=== PATIENT | male | born 1950 | race Caucasian/White ===

== ENCOUNTER → 2018-09-30 10:00 | Outpatient (CLI) | payer OTHER, SELFPAY ==
--- NOTE | 2018-09-30 10:05 | DI.CT.S_ITS ---
PROCEDURE: CT LUNG LOW DOSE SCREENING INDICATIONS: Encounter for screening, unspecified TECHNIQUE: Noncontrast 2.0-2.5 mm thick sections acquired from the pulmonary apices to the posterior costophrenic angles. 7 mm thick coronal and sagittal MIP reformats were then acquired. A low radiation dose technique was utilized. COMPARISON: None. FINDINGS: Image quality: Diagnostic, given the low radiation dose technique. Lungs and pleura: Within the lung parenchyma bilaterally there are 14 separate small pulmonary nodules are generally 2-3 mm in diameter, and some of which are calcified. This is consistent with old granulomatous disease and no malignant appearing lung mass is found. The largest nodule is located at the lateral left upper lobe measuring 7 mm and is densely calcified. There is a slight degree of posterior right lower lobe alveolar scarring centered on series 3 image 51. Mediastinum: Heart size is normal. No pericardial effusion. No mediastinal adenopathy by size criteria. Thoracic aorta and central pulmonary arteries are normal in size. Esophagus is normal in caliber. No hiatal hernia. Bones and chest wall: No suspicious bony lesions. No vertebral body compression fractures. No axillary or supraclavicular adenopathy by size criteria. Thyroid gland appears normal. Abdomen: Visualized upper abdomen solid organs and bowel loops appear normal in the absence of contrast. IMPRESSION: Old granulomatous disease, producing calcified and small noncalcified nodules within the lung parenchyma. No malignant appearing mass is seen. Minimal alveolar scarring posterior right lower lung seen on one image. LUNG-RADS 2; one year followup CT without contrast using low dose CT scanning technique is recommended. Dictated by: Jonathan Altman M.D. on 09/30/2018 at 12:40 Approved by: Jonathan Altman M.D. on 09/30/2018 at 13:08
== END ==
PROVIDERS: PCP Nurse Practitioner Adult Health; Visit Provider Nurse Practitioner Adult Health
DX: Z12.2 Encounter for screening for malignant neoplasm of respiratory organs (principal); Z13.83 Encounter for screening for respiratory disorder NEC; R91.8 Other nonspecific abnormal finding of lung field
CPT/HCPCS: 71250

== ENCOUNTER → 2020-01-20 15:27 | Outpatient (CLI) | payer MEDICARE, SELFPAY ==
--- NOTE | 2020-01-20 | DI.CT.S_ITS ---
PROCEDURE: CT CHEST WO CON INDICATIONS: Solitary pulmonary nodule TECHNIQUE: Noncontrast 2.0-2.5 mm thick sections acquired from the pulmonary apices to the posterior costophrenic angles. 7 mm thick axial MIP and 5 mm coronal and sagittal reformats were then acquired. A low radiation dose technique was utilized. COMPARISON: [facility], CT, CT LUNG LOW DOSE SCREENING, 09/30/2018, 9:58. FINDINGS: Image quality: Diagnostic, given the low radiation dose technique. Lungs and pleura: Innumerable bilateral sub-5 mm pulmonary nodules and calcified granulomas, which appear grossly unchanged is 09/30/18. Mediastinum: Heart size is normal. Coronary artery calcifications are present. No pericardial effusion. No mediastinal adenopathy by size criteria. Thoracic aorta and central pulmonary arteries are normal in size. Esophagus is normal in caliber. No hiatal hernia. Bones and chest wall: No suspicious bony lesions. Mild T5 compression fracture, technically indeterminate although new since 09/30/18 No axillary or supraclavicular adenopathy by size criteria. Thyroid gland negative. Large simple appearing left renal cyst as before. Hepatic cysts are also noted, unchanged low-attenuation presumed right adrenal adenoma unchanged. IMPRESSION: Redemonstration of multiple presumed calcified and noncalcified granulomatous sequela. No interval change. Age-indeterminate mild T5 compression fracture, new since the prior study. Please correlate with point tenderness. Continued annual lung screening could be performed as warranted by criteria Additional chronic and incidental findings as above. Fleischner Society criteria for SOLID lung nodule followup. Nodule size (mm)Low-risk patientHigh-risk patient<6 (single or multiple)No routine followup.Optional CT at 12 months. 6-8 (single or multiple)CT at 6-12 months, then optional CT at 18-24 mo.CT at 6-12 months, then CT at 18-24 months. >8 (single)CT at 3 months, PET-CT, or biopsy. Same as for low-risk pts. >8 (multiple)CT at 3-6 months, then optional CT at 18-24 mo.CT at 3-6 months, then CT at 18-24 months. Fleischner Society criteria for SUB-SOLID lung nodule followup. Solitary pure ground-glass nodules<6 mm (ground glass or part solid)No followup needed. 6 mm or larger (ground glass)CT at 6-12 months to confirm persistence, then CT every 2 years until 5 years.6 mm or larger (part solid)CT at 3-6 months to confirm persistence, then annual CT until 5 years if unchanged and solid component remains <6 mm. Multiple sub-solid nodules<6 mmCT at 3-6 months, then CT consider at 2 & 4 years for high risk patients. [address] at 3-6 months. Subsequent management based on most suspicious lesions. Recommendations do not apply to lung cancer screening, patients with immunosuppression, or patients with known primary cancer. Dictated by: Dayron Kelly M.D. on 01/20/2020 at 17:58 Approved by: Dayron Kelly M.D. on 01/20/2020 at 18:03
== END ==
PROVIDERS: PCP Nurse Practitioner Adult Health; Referring Provider Internal Medicine; Visit Provider Internal Medicine
DX: R91.8 Other nonspecific abnormal finding of lung field (principal); N28.1 Cyst of kidney, acquired; K76.89 Other specified diseases of liver; M48.54XA Collapsed vertebra, not elsewhere classified, thoracic region, initial encounter for fracture; I25.10 Atherosclerotic heart disease of native coronary artery without angina pectoris
CPT/HCPCS: 71250

== ENCOUNTER → 2021-02-04 09:56 | Outpatient (CLI) | payer OTHER, SELFPAY ==
[2021-02-04 11:08] LABS: Alanine Aminotransferase 32 IU/L (<50); Albumin 4.4 g/dL (3.5-5.0); Albumin Globulin Ratio 1.6 (1.0-2.8); Alkaline Phosphatase 67 U/L (38-126); Aspartate Aminotransferase 35 IU/L (17-59); BUN Creatinine Ratio 23.8 (6-22); Bilirubin Total 1.2 mg/dL (0.2-1.3); Blood Urea Nitrogen 15 mg/dL (9-20); Calcium 9.2 mg/dL (8.4-10.2); Carbon Dioxide 24 mmol/L (22-32); Chloride 104 mmol/L (98-107); Cholesterol 153 mg/dL (140-199); Estimated Glomerular Filt Rate > 60.0 mL/min (>60); Globulin 2.7 g/dL (1.7-4.1); Glucose 108 mg/dL (80-110); HDL Cholesterol 55 mg/dL (40-60); HEMOLYSIS < 15 (0-50); LDL Cholesterol Calculated 88 mg/dL (<100); Sodium 137 mmol/L (137-145); Total Protein 7.1 g/dL (6.3-8.2); Triglycerides 52 mg/dL (35-150)
[2021-02-05 07:09] LABS: PSA Free % 5.1 % (.); PSA, Total 9.1 ng/mL (0.0-4.0)
== END ==
PROVIDERS: PCP Nurse Practitioner Adult Health; Referring Provider Internal Medicine; Visit Provider Internal Medicine
DX: I10 Essential (primary) hypertension (principal); Z12.5 Encounter for screening for malignant neoplasm of prostate
CPT/HCPCS: 36415; 80053; 80061; 84153; 84154

== ENCOUNTER → 2021-03-01 10:06 | Outpatient (CLI) | payer OTHER, SELFPAY ==
[2021-03-01 12:16] LABS: Prostate Specific Antigen 8.82 ng/mL (0.10-4.00)
[2021-03-02 08:08] LABS: PSA Free % 4.6 % (.); PSA, Total 8.5 ng/mL (0.0-4.0)
== END ==
PROVIDERS: PCP Nurse Practitioner Adult Health; Referring Provider Physician Assistant Medical; Visit Provider Physician Assistant Medical
DX: R97.20 Elevated prostate specific antigen [PSA] (principal)
CPT/HCPCS: 36415; 84153; 84154

== ENCOUNTER → 2022-05-05 10:54 | Outpatient (CLI) | payer OTHER, SELFPAY ==
--- NOTE | 2022-05-05 | DI.RAD.S_ITS ---
PROCEDURE: XR KNEE RT 3V INDICATIONS: Pain in right knee TECHNIQUE: 3 views of the knee were acquired. COMPARISON: None. FINDINGS: No suspicious lytic or blastic osseous lesion. No fracture or dislocation. Small to moderate-sized knee joint effusion. Tricompartmental mild joint space narrowing. IMPRESSION: Small to moderate knee joint effusion. Mild degenerative changes. No acute finding. Dictated by: Baldev Harmon M.D. on 05/05/2022 at 12:25 Approved by: Baldev Harmon M.D. on 05/05/2022 at 12:26
== END ==
PROVIDERS: PCP Internal Medicine; Referring Provider Internal Medicine; Visit Provider Internal Medicine
DX: M25.561 Pain in right knee (principal); M25.461 Effusion, right knee
CPT/HCPCS: 73562

== ENCOUNTER 2022-07-04 10:25 | Emergency (ER) | payer OTHER, SELFPAY ==
[2022-07-04] VITALS (10 sets, daily range): BP systolic 117–134; BP diastolic 75–96; PULSE 67–98; RESP 13–21; TEMP 36.6; O2SAT 95–98; BMI 25.0
--- NOTE | 2022-07-04 10:32 | DI.RAD.S_ITS ---
PROCEDURE: XR CHEST 1V INDICATIONS: chest pain TECHNIQUE: One view of the chest was acquired. COMPARISON: None. FINDINGS: Surgical changes and devices: None. Lungs and pleura: A calcified granuloma is seen in lateral aspect of left upper lung field. No focal infiltrate. No pleural effusions or pneumothorax. Mediastinum: Mediastinal contours appear normal. Heart size is normal. Bones and chest wall: No suspicious bony lesions. Overlying soft tissues appear unremarkable. IMPRESSION: No acute cardiopulmonary pathology. Dictated by: Manuel Pandey M.D. on 07/04/2022 at 11:24 Approved by: Manuel Pandey M.D. on 07/04/2022 at 11:28
[2022-07-04 10:42] LABS: Add Manual Diff / Slide Review NO; Basophils Absolute Auto 0 /uL (0-100); Basophils Percent Auto 0.6 % (0-2); Eosinophils Absolute Auto 200 /uL (0-450); Eosinophils Percent Auto 2.6 % (2-4); Hematocrit 46.6 % (41-53); Hemoglobin 16.4 g/dL (13.5-17.5); Lymphocytes Absolute Auto 1600 /uL (1100-4500); Mean Corpuscular HGB Conc 35.2 % (30-36); Mean Corpuscular Hemoglobin 33.5 PG (26-34); Mean Corpuscular Volume 95.1 fL (80-100); Monocytes Absolute Auto 700 /uL (0-900); Monocytes Percent Auto 11.3 % (3-14); Neutrophils Absolute Auto 3600 /uL (1500-7000); Neutrophils Percent Auto 59.5 % (50-75); Platelet Count 141 X10^3/uL (150-400); Red Cell Distribution Width 12.7 % (11.6-14.8)
[2022-07-04 10:53] LABS: Prothrombin Time 11.9 SECONDS (10.1-12.7)
[2022-07-04 10:56] LABS: PTT Partial Thromboplastin Tim 31 SECONDS (26-36)
[2022-07-04 10:59] LABS: Alanine Aminotransferase 23 IU/L (<50); Albumin 4.2 g/dL (3.5-5.0); Albumin Globulin Ratio 1.4 (1.0-2.8); Alkaline Phosphatase 65 U/L (38-126); Aspartate Aminotransferase 26 IU/L (17-59); BUN Creatinine Ratio 19.2 (6-22); Bilirubin Total 2.1 mg/dL (0.2-1.3); Blood Urea Nitrogen 15 mg/dL (9-20); Carbon Dioxide 28 mmol/L (22-32); Chloride 105 mmol/L (98-107); Creatine Kinase 71 U/L (55-170); Estimated Glomerular Filt Rate > 60 mL/min (>60); Globulin 3.1 g/dL (1.7-4.1); Glucose 105 mg/dL (80-110); HEMOLYSIS < 15 (0-50); Lipase 38 U/L (23-300); Magnesium 1.9 mg/dL (1.6-2.3); Potassium 4.2 mmol/L (3.4-5.1); Sodium 137 mmol/L (137-145); Total Protein 7.3 g/dL (6.3-8.2)
[2022-07-04 11:10] LABS: Troponin I < 0.012 ng/mL (0.01-0.034)
--- NOTE | 2022-07-04 12:14 | ED_ITS ---
HPI - Arrhythmia/Palpitations General Chief Complaint: Arrhythmia/Palpitations Stated Complaint: AFIB- sent by [facility] Time Seen by Provider: 07/04/22 12:06 Source: patient Mode of arrival: Ambulatory History of Present Illness HPI narrative: Patient is a 71-year-old male history of stroke without residual deficits he has a known PFO paroxysmal atrial fibrillation presenting today it atrial fibrillation. Says he felt fine yesterday. He says he woke up this morning around 1:00 a.m. and felt irregular heartbeat he was able to go back to sleep. He has absolutely no symptoms now although he is in AFib with heart rate in the 80s. He was seen initially at the walk-in clinic to be checked out. He sometimes feels that just being irregular when he is moving around but overall is fairly asymptomatic. He is not 100% sure how he was yesterday but he thinks he was in his normal sinus rhythm. He states that his regular heart rate is 50. Related Data Previous Rx's Medication Instructions Recorded apixaban 5 mg tablet (Eliquis) 5 mg PO BID #60 tabs 07/04/22 metoprolol succinate 25 mg 12.5 mg PO DAILY #30 tabs 07/04/22 tablet,extended release 24 hr Allergies Allergy/AdvReac Type Severity Reaction Status Date / Time No Known Drug Allergies Allergy Verified 07/04/22 10:33 Review of Systems Review of Systems Narrative: GENERAL: Denies chills, fatigue, malaise, fever, sweats, travel HEENT: Denies sinus pain, ear pain, sore throat, difficulty swallowing, neck pain RESPIRATORY: Denies dyspnea, cough, wheezing, hemoptysis, sputum. CARDIOVASCULAR: See HPI GASTROINTESTINAL: Denies nausea, vomiting, abdominal pain, diarrhea, constip ation, melena. : Denies dysuria, frequency, incontinence, hematuria, urinary retention, flank pain. MUSCULOSKELETAL: Denies weakness, joint pain, or bony pain SKIN: No rash, no erythema, no pruritus NEUROLOGIC: Denies weakness, dizziness, headache, numbness, change in speech, confusion PSYCHIATRIC: No concerning psychosocial issues. 12 point review of systems is negative except for those stated above and HPI Patient History Social History Smoking Status: Never smoker Smoking Status: Never smoker alcohol intake frequency: holidays/special occasions only Substance Use Type: does not use Exam Initial Vital Signs Initial Vital Signs: Vital Signs Temperature 97.9 F 07/04/22 10:27 Pulse Rate 86 07/04/22 10:27 Respiratory Rate 15 07/04/22 10:27 Blood Pressure 134/96 H 07/04/22 10:27 Pulse Oximetry 96 07/04/22 10:27 Oxygen Delivery Method 07/04/22 10:27 GENERAL: Alert pleasant 71-year-old male and in no acute distress. HEENT: Head atraumatic,EOMI, pupils reactive, face symmetric, moist mucous membranes CARDIOVASCULAR: Irregularly irregular no murmur RESPIRATORY: Breath sounds equal bilaterally, no wheezes rales or rhonchi. ABDOMEN: Soft, nontender. Normoactive bowel sounds all 4 quadrants. No guardin g or rebound. EXTREMITIES: Normal range of motion, no clubbing or edema. Neurovascularly intact NEUROLOGICAL: Alert and oriented x4.Normal gait and speech. SKIN: Warm, dry, no laceration, no petechiae, no rashes or lesions. Course Orders Ordered: ED Orders 07/04/22 10:32 XR chest 1V Stat 07/04/22 10:35 Complete Blood Count AUTO DIFF Stat Comprehensive Metabolic Panel Stat Lipase Stat Magnesium Stat Partial Thromboplastin Time Stat Prothrombin Time INR Stat Troponin & CK Cardiac Panel Stat EKG-12 Lead Stat Discontinued Medications Apixaban (Apixaban 5 Mg Tablet) 5 mg PO NOW ONE Stop: 07/04/22 12:39 Last Admin: 07/04/22 12:54 Dose: 5 mg Documented By: LISA Metoprolol Succinate (Metoprolol Er 25 Mg Tablet) 12.5 mg PO NOW ONE Stop: 07/04/22 12:39 Last Admin: 07/04/22 12:52 Dose: 12.5 mg Documented By: LISA Vital Signs Vital signs: Vital Signs - 8 hr 07/04/22 10:27 07/04/22 10:30 07/04/22 10:30 Temperature 97.9 F Pulse Rate 86 76 Respiratory Rate 15 Blood Pressure 134/96 H 134/96 H Pulse Oximetry 96 97 Oxygen Delivery Method Room Air 07/04/22 11:00 07/04/22 11:00 07/04/22 12:52 Temperature Pulse Rate 67 98 H Respiratory Rate 13 Blood Pressure 126/85 124/75 Pulse Oximetry 95 Oxygen Delivery Method 07/04/22 11:30 07/04/22 11:30 07/04/22 12:00 Temperature Pulse Rate 80 Respiratory Rate 14 Blood Pressure 120/83 117/82 Pulse Oximetry 96 Oxygen Delivery Method 07/04/22 12:00 07/04/22 12:30 07/04/22 12:31 Temperature Pulse Rate 81 77 77 Respiratory Rate 16 14 14 Blood Pressure Pulse Oximetry 95 97 97 Oxygen Delivery Method 07/04/22 12:31 07/04/22 13:00 07/04/22 13:00 Temperature Pulse Rate 75 Respiratory Rate 21 Blood Pressure 124/75 122/90 Pulse Oximetry 97 Oxygen Delivery Method 07/04/22 13:17 Temperature Pulse Rate 75 Respiratory Rate 18 Blood Pressure 122/90 Pulse Oximetry 98 Oxygen Delivery Method MDM - Arrhythmia/Palpitations Lab Data Result diagrams: 07/04/22 10:35 07/04/22 10:35 Labs: Lab Results 07/04/22 07/04/22 07/04/22 Range/Units 10:35 10:35 10:35 WBC 6.0 (4.5-11.0) X10^3/uL RBC 4.90 (4.5-5.9) X10^6/uL Hgb 16.4 (13.5-17.5) g/dL Hct 46.6 (41-53) % MCV 95.1 (80-100) fL MCH 33.5 (26-34) PG MCHC 35.2 (30-36) % RDW 12.7 (11.6-14.8) % Plt Count 141 L (150-400) X10^3/uL Neut % (Auto) 59.5 (50-75) % Lymph % (Auto) 26.0 (25-40) % Fleming % (Auto) 11.3 (3-14) % Eos % (Auto) 2.6 (2-4) % Baso % (Auto) 0.6 (0-2) % Neut # (Auto) 3600 (2209-8700) /uL Lymph # (Auto) 1600 (1193-9960) /uL Fleming # (Auto) 700 (0-900) /uL Eos # (Auto) 200 (0-450) /uL Baso # (Auto) 0 (0-100) /uL PT 11.9 (10.1-12.7) SECONDS INR 1.0 (0.9-1.3) APTT 31 (26-36) SECONDS Sodium 137 (137-145) mmol/L Potassium 4.2 (3.4-5.1) mmol/L Chloride 105 (98-107) mmol/L Carbon Dioxide 28 (22-32) mmol/L BUN 15 (9-20) mg/dL Creatinine 0.78 (0.66-1.25) mg/dL Estimated GFR > 60 (>60) mL/min BUN/Creatinine Ratio 19.2 (6-22) Glucose 105 (80-110) mg/dL Calcium 9.0 (8.4-10.2) mg/dL Magnesium 1.9 (1.6-2.3) mg/dL Total Bilirubin 2.1 H (0.2-1.3) mg/dL AST 26 (17-59) IU/L ALT 23 (<50) IU/L Alkaline Phosphatase 65 (38-126) U/L Total Creatine Kinase 71 (55-170) U/L CK-MB (CK-2) TNP CK-MB (CK-2) Rel Index TNP Troponin I < 0.012 (0.01-0.034) ng/mL Total Protein 7.3 (6.3-8.2) g/dL Albumin 4.2 (3.5-5.0) g/dL Globulin 3.1 (1.7-4.1) g/dL Albumin/Globulin Ratio 1.4 (1.0-2.8) Lipase 38 (23-300) U/L Urine Dip Bedside Urine Glucose Negative Bedside Urine Bilirubin - Negative Bedside Urine Ketone - Negative Urine Specific [place] 1.015 Bedside Urine Occult Blood - Negative Bedside Urine pH 6.5 Bedside Urine Protein - Negative Bedside Urine Urobilinogen - Negative Bedside Urine Nitrite - Negative Bedside Urine Leukocytes - Negative Esterase Imaging Data Chest x-ray: Radiologist's Impresson: XRay Report Signed Patient: Roger Johnston MR#: [id number] : 1950 Acct:[id number] Age/Sex: 71 / M Date of Service: 07/04/22 Loc: ED Accession Number: [id number] ?? Procedure: XR chest 1V Ordering Provider: Glenda Ferguson D.O. PROCEDURE:? XR CHEST 1V ? INDICATIONS:? chest pain ? TECHNIQUE:? One view of the chest was acquired.? ? COMPARISON:? None. ? FINDINGS:? ? Surgical changes and devices:? None.? ? Lungs and pleura:? A calcified granuloma is seen in lateral aspect of left upper lung field.? No focal infiltrate.? No pleural effusions or pneumothorax.? ? Mediastinum:? Mediastinal contours appear normal.? Heart size is normal.? ? Bones and chest wall:? No suspicious bony lesions.? Overlying soft tissues appear unremarkable.? ? IMPRESSION:? No acute cardiopulmonary pathology.? ? ? Dictated by: Manuel Pandey M.D. on 07/04/2022 at 11:24 ? ? ECG Data Interpretation: Atrial fibrillation rate [address] changes no priors to compare MDM Narrative Medical decision making narrative: Patient is found to be in rate controlled atrial fibrillation. He is on aspirin but did not take his aspirin today he has a known PFO prior history of CVA. She is completely asymptomatic now however possible started at 1:00 a.m.. We talked about the possibility of cardioversion versus medical management. At this time since he is asymptomatic and was asymptomatic yesterday he elects not be cardioverted. He understands that he would need to wait 3 weeks on anticoagulation for cardioversion at this time. We discussed risk and benefits anticoagulation. At this time he agrees to take Eliquis. Also going to start him on metoprolol 12.5 mg for rate control even though he is not tachycardic at this time would like to prevent that. HAS-BLED Score for Major Bleeding Risk from [email or web address] on 07/04/2022 All calculations should be rechecked by clinician prior to use RESULT SUMMARY: 2 points Risk was 4.1% in one validation study (Lip 2011) and 1.88 bleeds per 100 patient-years in another validation study (Pisters 2010). Anticoagulation can be considered, however patient does have moderate risk for major bleeding (~2/100 patient-years). INPUTS: Hypertension ?> 0 = No Renal disease ?> 0 = No Liver disease ?> 0 = No Stroke history ?> 1 = Yes Prior major bleeding or predisposition to bleeding ?> 0 = No Labile INR ?> 0 = No Age >65 ?> 1 = Yes Medication usage predisposing to bleeding ?> 0 = No Alcohol use ?> 0 = No Discharge Plan Departure Patient Disposition: Home Clinical Impression: Atrial fibrillation Instructions: Atrial Fibrillation Activity Restrictions/Additional Instructions: *You have been diagnosed with atrial fibrillation *What to do: At this time you are in atrial fibrillation we discussed cardiov ersion but at this time will hold off. Please take Eliquis talk with Cardiology you can have an outpatient elective cardioversion in about 3 weeks. *Continue to take medications as directed Eliquis 5 mg twice a day Metoprolol 12.5 mg once daily *Follow up with your primary care provider in 2-3 days or call [phone] *Return to ER if you should have racing heart rate shortness of breath chest pain, hitting her head rectal bleeding or any new, worsening or concerning symptoms Prescriptions: New metoprolol succinate 25 mg tablet extended release 24 hr 12.5 mg PO DAILY Qty: 30 0RF Eliquis 5 mg tablet 5 mg PO BID Qty: 60 0RF Referrals: Alexander Mohan MD [Physician] - Donnell Martinez MD [Physician] - Phuong Blanton MD [Physician] - Netta Reynaga MD [Primary Care Provider] - Visit Report Forms: Patient Portal/API
[2022-07-04] MEDS: METOPROLOL ER 25 MG TABLET 12.5 MG PO (12:52)
[2022-07-04] MEDS: APIXABAN 5 MG TABLET PO (12:54)
== END 2022-07-04 13:17 | disposition home or self-care (01) ==
PROVIDERS: Emergency Provider Emergency Medicine; PCP Internal Medicine
DX: I48.91 Unspecified atrial fibrillation (principal)
CPT/HCPCS: 36415; 71045; 80053; 81003; 82550; 83690; 83735; 84484; 85025; 85610; 85730; 93005; 93010; 99284

== ENCOUNTER → 2022-07-24 14:46 | Outpatient (CLI) | payer OTHER, SELFPAY ==
--- NOTE | 2022-07-24 14:50 | DI.CT.S_ITS ---
PROCEDURE: CT ABDOMEN PELVIS WO CON INDICATIONS: Cystic disease of liver/history of nicotine depend TECHNIQUE: Noncontrast 5 mm thick sections acquired from the diaphragms to the symphysis. 5 mm coronal and sagittal reformats were then performed. For radiation dose reduction, the following was used: automated exposure control, adjustment of mA and/or kV according to patient size. COMPARISON: None. FINDINGS: Image quality: Excellent. ABDOMEN: Lung bases: Lung bases are clear. Heart size is normal. Solid organs: Liver is normal in size. Low-density cystic lesions are visualized within the liver which are incompletely characterized but likely represent simple hepatic cysts. Gallbladder is contracted. Pancreas is normal in contours. Spleen is normal in size. A fat density mass is present within the right adrenal gland suggesting an adrenal adenoma. No left adrenal nodules. Kidneys are normal in size, without hydronephrosis or nephrolithiasis. A 1.0 cm exophytic intermediate density cyst is present within the lower pole of the right kidney. A low-density cyst is also present within the lower pole of the right kidney. A large low-density cyst is present at the upper pole of the left kidney. There are bilateral low-density pararenal cysts. 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 Peritoneum and bowel: Unenhanced bowel loops demonstrate normal wall thickness and caliber. There are scattered sigmoid diverticula. No evidence for diverticulitis. The appendix is thin walled and gas filled. No free fluid or air. Nodes and vessels: No retroperitoneal or mesenteric adenopathy by size criteria. Aorta and inferior vena cava are normal in caliber. Miscellaneous: No ventral hernias. PELVIS: Genitourinary: Bladder wall thickness is normal. Miscellaneous: No inguinal adenopathy. There is a small fat containing right inguinal hernia. Bones: No suspicious bony lesions. No vertebral body compression fractures. Severe degenerative changes are present at L1-2. IMPRESSION: 1. Right adrenal adenoma. 2. Probable high-density right renal cyst. Cystic neoplasm cannot be excluded. Nonemergent renal ultrasound recommended to further characterize this finding. 3. No acute intra-abdominal findings. Normal appendix. Diverticulosis. No acute diverticulitis. Dictated by: Federica Ryder M.D. on 07/24/2022 at 17:13 Approved by: Federica Ryder M.D. on 07/24/2022 at 17:19
--- NOTE | 2022-07-24 14:50 | DI.CT.S_ITS ---
PROCEDURE: CT CHEST WO CON INDICATIONS: Cystic disease of liver/history of nicotine depend TECHNIQUE: Noncontrast 5 mm thick sections acquired from the pulmonary apices to the posterior costophrenic angles. 1 mm lung window, 5 mm thick coronal and sagittal and 7 mm axial MIP reformats were then acquired. For radiation dose reduction, the following was used: automated exposure control, adjustment of mA and/or kV according to patient size. COMPARISON: [facility], CT, CT LOW DOSE LUNG CA SCREENING, 05/29/2021, 16:34. [facility], CT, CT CHEST WO CON, 01/20/2020, 15:32. FINDINGS: Image quality: Excellent. Lungs and pleura: No acute air space opacities. Focal calcification is redemonstrated within the posterior aspect of the right lower lobe similar in appearance to the study dated May 29, 2021. No pleural effusions or pneumothorax. Central and peripheral airways are patent and normal in caliber. Mediastinum: Heart size is normal. No pericardial effusion. No mediastinal adenopathy by size criteria. Thoracic aorta and central pulmonary arteries are normal in size. Scattered atheromatous calcifications are present within the aortic arch. Esophagus is normal in caliber. No hiatal hernia. Bones and chest wall: No suspicious bony lesions. No vertebral body compression fractures. No axillary or supraclavicular adenopathy by size criteria. Thyroid gland is unremarkable. Abdomen: Visualized upper abdominal solid organs and bowel loops appear normal in the absence of contrast. IMPRESSION: 1. No suspicious pulmonary nodules or mass lesions. No acute airspace opacities. Dictated by: Federica Ryder M.D. on 07/24/2022 at 17:20 Approved by: Federica Ryder M.D. on 07/24/2022 at 17:23
== END ==
PROVIDERS: PCP Internal Medicine; Referring Provider Physician Assistant; Visit Provider Physician Assistant
DX: Q44.6 Cystic disease of liver (principal); Z87.891 Personal history of nicotine dependence; D35.01 Benign neoplasm of right adrenal gland; K57.90 Diverticulosis of intestine, part unspecified, without perforation or abscess without bleeding
CPT/HCPCS: 71250; 74176

== ENCOUNTER → 2022-10-31 10:09 | Outpatient (CLI) | payer OTHER, SELFPAY ==
--- NOTE | 2022-10-31 | DI.US.S_ITS ---
PROCEDURE: US RENAL COMPLETE INDICATIONS: CYST OF KIDNEY TECHNIQUE: Real-time scanning was performed of the kidneys and bladder, with image documentation. COMPARISON: None. FINDINGS: Kidneys: Kidneys are normal in size. Right kidney measures 12.7 cm long; left kidney measures 17 cm long. Right renal cortical thickness is 1.9 cm; left renal cortical thickness is 1.5 cm. Renal cortical echotexture is normal. No hydronephrosis or nephrolithiasis. No suspicious solid mass lesions. Multiple bilateral renal cysts are seen. Large simple appearing cyst in upper pole of left kidney is seen measures 8.9 x 8.1 x 9.3 cm in size. Small simple appearing exophytic cyst is seen in lower pole of right kidney measures 1.5 x 1.2 x 1.3 cm in size. Bladder: Pre-void bladder volume is 93 mL. Post-void residual is 0 mL. Pre-void images demonstrate no intraluminal masses or stones. On pre-void images, bilateral ureteral jets are noted with color Doppler interrogation. (Of note, ureteral jets may not be detectable in up to 25% of cases due to insufficient differences in specific gravity between ureteral and bladder urine). Miscellaneous: No free pelvic fluid. IMPRESSION: 1. Bilateral renal cysts as above. No definite solid appearing renal lesion. No hydronephrosis or nephrolithiasis. 2. Normal appearing urinary bladder. Dictated by: Manuel Pandey M.D. on 10/31/2022 at 12:36 Approved by: Manuel Pandey M.D. on 10/31/2022 at 12:42
== END ==
PROVIDERS: PCP Internal Medicine; Referring Provider Physician Assistant; Visit Provider Physician Assistant
DX: N28.1 Cyst of kidney, acquired (principal)
CPT/HCPCS: 76770

== ENCOUNTER → 2023-01-20 10:15 | Outpatient (CLI) | payer MEDICARE, SELFPAY ==
--- NOTE | 2023-01-20 | DI.NM.S_ITS ---
PROCEDURE: NM BUBBA PERF SPECT REST & STR Rest and exercise myocardial perfusion SPECT with gated imaging and ejection fraction RADIOPHARMACEUTICAL: 12.3mCi Tc-99m sestamibi IV at rest and 25.4mCi Tc-99m sestamibi IV at peak exercise. A one day-protocol was performed. INDICATIONS: Essential (primary) hypertension TECHNIQUE: Radiopharmaceutical was injected at peak stress test, and also at rest. SPECT images were obtained. SPECT myocardial perfusion images were displayed in short axis, horizontal long axis, and vertical long axis views. Gated images were reviewed using [employer] software. COMPARISON: None. CARDIAC STRESS: A standard Saad treadmill exercise tolerance test was performed by the patient under the supervision of an attending staff. The patient exercised for 8 minutes and 1 seconds; functional aerobic impairment (JODY) is -17%. Hemodynamic data: There is normal heart rate response to exercise stress. Patient achieved 100% of maximum predicted heart rate at peak exercise. Borderline hypertensive response to exercise (reseting BP 132/84mHg, max BP 202/116mmHg). Symptoms: Patient denied chest pain during exercise. EKG: No diagnostic EKG changes of ischemia; rare PACs during the study. FINDINGS: Raw data: There is good myocardial labeling by radiotracer. No significant motion artifacts. [id number] ratio is 0.27 (normal is less than 0.38 for sestamibi tracer, and less than 0.50 for thallium tracer). Left ventricle function: Gated images demonstrate normal left ventricle wall thickening. No segmental wall motion abnormality. No transient ischemic dilation; TID is 0.99 (normal less than 1.3). The left ventricle resting end-diastolic volume is 187 mL. Left ventricle stress ejection fraction is 63%; normal values are above 45%. Myocardial perfusion: There is normal distribution of activity in the left and right ventricular myocardium. No fixed or reversible perfusion defects. IMPRESSION: Low risk, normal treadmill nuclear stress test. Enlarged left ventricle. Consider Echo to assess cardiac structure. 1) No perfusion evidence of ischemia or infarction. 2) Enlarged left ventricle (LVEDV 187cc) with normal wall motion and normal systolic function (EF post stress 63%). 3) No diagnostic ST changes with exercise. 4) No angina during the study. 5) Good exercise tolerance (10.1Mets, JODY -17%). Target heart rate achieved. 6) Borderline hypertensive response to exercise (reseting BP 132/84mHg, max BP 202/116mmHg). 7) No prior nuclear stress test available for comparison. Dictated by: Phuong Blanton MD on 01/21/2023 at 12:47 Approved by: Phuong Blanton MD on 01/21/2023 at 12:50
--- NOTE | 2023-01-20 12:59 | DI.ECHO.S_ITS ---
Interpretation Summary The patient was in sinus bradycardia with heart rates between 49-61 bpm during the exam. The left ventricle is mildly dilated. The ejection fraction is estimated to be 60-65%. The right ventricle is normal in size and function. No significant valvular pathology seen. The IVC is dilated (diameter is greater than 2.1 cm) yet it collapses greater than 50% with a sniff. This suggests a right atrial pressure of 8 mm Hg. Procedure: A two-dimensional transthoracic echocardiogram with color flow and Doppler was performed. The study quality was technically adequate. The patient had an echocardiogram, but there is no comparison study available. The patient was in sinus bradycardia with heart rates between 49-61 bpm during the exam. Left Ventricle: The left ventricle is mildly dilated. There is normal left ventricular wall thickness. There is no thrombus. The ejection fraction is estimated to be 60-65%. There are no focal wall motion abnormalities. MV E/A: 1.0 Med Peak E' Stephan: 5.8 cm/sec E/E' med: 9.4. Right Ventricle: The right ventricle is normal in size and function. Atria: The left atrium is moderately dilated. The right atrium is mildly dilated. A patent foramen ovale is suspected. Mitral Valve: There is mild mitral annular calcification. There is trace mitral regurgitation. Aortic Valve: The aortic valve is trileaflet. The aortic valve opens well. There is no aortic valve stenosis. There is trace aortic regurgitation. Tricuspid Valve: The tricuspid valve is normal in structure and function. There is trace tricuspid regurgitation. Pulmonary artery pressures cannot be estimated because of the lack of a measurable TR jet velocity. Pulmonic Valve: The pulmonic valve leaflets are thin and pliable; valve motion is normal. There is trace pulmonic regurgitation. Great Vessels: The aortic root is normal size. The dimensions of the ascending aorta are normal. The IVC is dilated (diameter is greater than 2.1 cm) yet it collapses greater than 50% with a sniff. This suggests a right atrial pressure of 8 mm Hg. Pericardium/ Pleura There is no pericardial effusion. There is no pleural effusion. MMode/2D Measurements & Calculations LVIDd: 5.9 cm LVOT diam: 2.4 cm LVIDs: 4.0 cm Ao root diam: 3.2 cm FS: 31.8 % asc Aorta Diam: 3.6 cm EPSS: 1.2 cm Ao Arch Diam (Prox Trans): 2.8 cm IVSd: 0.92 cm LVPWd: 0.83 cm LV morfin. diameter/BSA (cm/m^2): 2.7 LV sys. diameter/BSA (cm/m^2): 1.9 LA A2 area: 29.3 cm2 RA long axis: 6.3 cm LA A4 area: 23.9 cm2 RA area: 24.8 cm2 LA length (vol): 6.2 cm RA vol: 82.9 ml LA vol: 95.4 ml RA : 38.6 ml/m2 LA vol index: 44.4 ml/m2 IVC diam: 2.6 cm RVD1 (basal): 4.9 cm RVD2 (mid): 3.9 cm TAPSE: 2.1 cm Doppler Measurements & Calculations Ao V2 max: 185.5 cm/sec LVOT Max Stephan: 119.6 cm/sec Ao V2 mean: 124.6 cm/sec LV V1 max P.7 mmHg Ao max P.8 mmHg LV V1 VTI: 28.3 cm Ao mean P.0 mmHg FELIBERTO(I,D): 3.3 cm2 Ao V2 VTI: 39.4 cm FELIBERTO(V,D): 2.9 cm2 sev ratio: 0.72 FELIBERTO indexed to BSA (cm^2/m^2): 1.5 MV E max stephan: 54.5 cm/sec PA V2 max: 107.3 cm/sec MV A max stephan: 52.2 cm/sec PA V2 mean: 78.9 cm/sec MV E/A: 1.0 PA mean P.6 mmHg Med Peak E' Stephan: 5.8 cm/sec PA pr(Accel): 31.0 mmHg E/E' med: 9.4 Lat Peak E' Stephan: 11.0 cm/sec E/E' lat: 5.0 E/e' average: 7.2 MV dec time: 0.30 sec SV(LVOT): 128.9 ml Reading Physician:05:21 PM
== END ==
PROVIDERS: PCP Internal Medicine; Referring Provider Internal Medicine Cardiovascular Disease; Visit Provider Internal Medicine Cardiovascular Disease
DX: I34.81 Nonrheumatic mitral (valve) annulus calcification (principal); Q21.12 Patent foramen ovale; I48.0 Paroxysmal atrial fibrillation; I11.9 Hypertensive heart disease without heart failure
CPT/HCPCS: 78452; 93017; 93306; A9502

== ENCOUNTER → 2023-01-30 07:02 | Outpatient (CLI) | payer OTHER, SELFPAY ==
[2023-01-30 09:41] LABS: Cholesterol 110 mg/dL (140-199); HDL Cholesterol 45 mg/dL (40-60); LDL Cholesterol Calculated 58 mg/dL (<100); Triglycerides 37 mg/dL (35-150)
== END ==
PROVIDERS: PCP Internal Medicine; Referring Provider Nurse Practitioner; Visit Provider Nurse Practitioner
DX: I10 Essential (primary) hypertension (principal); E78.5 Hyperlipidemia, unspecified
CPT/HCPCS: 36415; 80061

== ENCOUNTER → 2023-11-04 09:43 | Outpatient (CLI) | payer OTHER, SELFPAY ==
--- NOTE | 2023-11-04 | DI.US.S_ITS ---
PROCEDURE: US RENAL COMPLETE INDICATIONS: CYSTIC KIDNEY DISEASE TECHNIQUE: Real-time scanning was performed of the kidneys and bladder, with image documentation. COMPARISON: [facility], , US RENAL COMPLETE, 10/31/2022, 10:16. FINDINGS: Kidneys: Kidneys are normal in size. Right kidney measures 13.0 cm long; left kidney measures 20.3 cm long. Right renal cortical thickness is 1.4 cm; left renal cortical thickness is 2.0 cm. Renal cortical echotexture is normal. No hydronephrosis or nephrolithiasis. No suspicious solid mass lesions. There is a simple right 2.0 and 1.5 cm cyst. On the left there is a simple 9.1 cm and 2.2 cm cyst. Bladder: Pre-void bladder volume is 64.5 mL. Post-void residual is 55.7 mL. Pre-void images demonstrate no intraluminal masses or stones. On pre-void images, bilateral ureteral jets are noted with color Doppler interrogation. (Of note, ureteral jets may not be detectable in up to 25% of cases due to insufficient differences in specific gravity between ureteral and bladder urine). Miscellaneous: No free pelvic fluid. IMPRESSION: 1. Bilateral renal cysts. The largest left renal cyst measures greater than 9 cm in diameter. 2. No hydronephrosis or nephrolithiasis. 3. Large postvoid residual. Dictated by: Federica Ryder M.D. on 11/04/2023 at 11:58 Approved by: Federica Ryder M.D. on 11/04/2023 at 12:01
== END ==
PROVIDERS: PCP Internal Medicine; Referring Provider Physician Assistant; Visit Provider Physician Assistant
DX: N28.1 Cyst of kidney, acquired (principal)
CPT/HCPCS: 76770

== ENCOUNTER → 2025-08-01 13:18 | Outpatient (CLI) | payer MEDICARE, SELFPAY ==
--- NOTE | 2025-08-01 13:22 | DI.ECHO.S_ITS ---
[facility] : : [address] : : [place] : : [id number] : : Phone: [phone] Echocardiogram Report + + :Name: KENNETH HALL Study Date: 08/01/2025 Height: 74 in : :Hospital ReadingLocation: Weight: 195 lb : : Gender: Male BSA: 2.1 m2 : :: 1950 Age: 74 yrs BP: 139/74 mmHg: :Reason For Study: ATRIAL FIBRILLATION : :Ordering Physician: Alon MAHERformed By: Veronica Pickering : :Referring: FERNANDO MAHER : + + Interpretation Summary - The left ventricular contractility is normal. Estimated ejection fraction is approximately 60 to 65% with no segmental wall motion abnormalities. No LVH. Normal diastolic function. - The right ventricular contractility is normal. - Moderate left atrial enlargement. The right ventricular cavity is mildly dilated. The right atrium and left ventricle are of normal size. - Trace to mild tricuspid regurgitation with estimated pulmonary systolic artery pressures of 27 mmHg. - Small atrial septal defect noted with [id number] shunt present. - No obvious intracardiac masses nor thrombi. - No hemodynamically significant pericardial effusion. - Low right-sided filling pressures. Conclusion: Normal biventricular systolic function with no significant valvular abnormalities. Small intra-atrial septal defect with [id number] shunt noted when compared with previous echocardiogram, there appears to be mild increase of the right ventricular cavity. Procedure: A two-dimensional transthoracic echocardiogram with color flow and Doppler was performed. The study quality was technically adequate. Comparison is made with the echocardiogram of 01/20/2023. The patient was in sinus bradycardia with heart rates between 46-63 bpm during the exam. Left Ventricle: The left ventricle is mildly dilated. There is normal left ventricular wall thickness. The ejection fraction is estimated to be 60-65%. Normal diastolic function. Right Ventricle: The right ventricle is mildly dilated. The right ventricular systolic function is normal. Atria: The left atrium is moderately dilated. Right atrial size is normal. A patent foramen ovale is present. Mitral Valve: The mitral valve leaflets appear to open well. There is trace mitral regurgitation. Aortic Valve: The aortic valve is trileaflet. The aortic valve opens well. There is no aortic valve stenosis. There is trace aortic regurgitation. Tricuspid Valve: The tricuspid valve leaflets are thin and pliable. There is mild tricuspid regurgitation. The right ventricular systolic pressure is estimated to be at least 27 mmHg based on an estimated right atrial pressure of 3 mm Hg. Pulmonic Valve: The pulmonic valve leaflets are thin and pliable; valve motion is normal. There is trace pulmonic regurgitation. Great Vessels: The aortic root is normal size. The dimensions of the ascending aorta are normal. The IVC is of normal diameter and collapses greater than 50% with a sniff. This suggests a low right atrial pressure of 3 mm Hg. Pericardium/ Pleura There is no pericardial effusion. There is no pleural effusion. MMode/2D Measurements & Calculations LVIDd: 6.2 cm LVOT diam: 2.2 cm LVIDs: 4.4 cm Ao root diam: 3.7 cm FS: 28.6 % asc Aorta Diam: 3.7 cm EPSS: 0.67 cm Ao Arch Diam (Prox Trans): 2.8 cm IVSd: 0.79 cm LVPWd: 0.67 cm LV morfin. diameter/BSA (cm/m^2): 2.9 LV sys. diameter/BSA (cm/m^2): 2.1 LA A2 area: 27.3 cm2 RA long axis: 5.9 cm LA A4 area: 29.1 cm2 RA area: 23.3 cm2 LA length (vol): 6.7 cm RA vol: 78.1 ml LA vol: 100.9 ml RA : 36.3 ml/m2 LA vol index: 46.9 ml/m2 IVC diam: 2.9 cm RVD1 (basal): 4.5 cm RVD2 (mid): 4.0 cm TAPSE: 2.2 cm Doppler Measurements & Calculations Ao V2 max: 174.0 cm/sec LVOT Max Stephan: 99.6 cm/sec Ao V2 mean: 113.7 cm/sec LV V1 max P.0 mmHg Ao max P.1 mmHg LV V1 VTI: 22.6 cm Ao mean P.9 mmHg FELIBERTO(I,D): 2.4 cm2 Ao V2 VTI: 36.4 cm FELIBERTO(V,D): 2.2 cm2 sev ratio: 0.62 FELIBERTO indexed to BSA (cm^2/m^2): 1.1 MV E max stephan: 71.2 cm/sec TR max stephan: 243.9 cm/sec MV A max stephan: 37.9 cm/sec TR max P.8 mmHg MV E/A: 1.9 PA V2 max: 100.8 cm/sec Med Peak E' Stephan: 8.5 cm/sec PA V2 mean: 70.1 cm/sec E/E' med: 8.4 PA mean P.2 mmHg Lat Peak E' Stephan: 11.5 cm/sec PA pr(Accel): 28.3 mmHg E/E' lat: 6.2 E/e' average: 7.3 MV dec time: 0.22 sec SV(LVOT): 86.7 ml Reading Physician:RAYSHAWN
== END ==
PROVIDERS: PCP Internal Medicine; Referring Provider Internal Medicine; Visit Provider Internal Medicine Cardiovascular Disease
DX: I48.0 Paroxysmal atrial fibrillation (principal); I07.1 Rheumatic tricuspid insufficiency
CPT/HCPCS: 93306